=== PATIENT | male | born 1960 | race Caucasian/White ===

== ENCOUNTER 2023-02-11 12:25 | Inpatient (IN) | payer SELFPAY ==
[~2023-02-11] VITALS: Ht 180.3 cm; Wt 127.3 kg
[~2023-02-11 12:25] MED LIST: ALBU8.5H17 INH; PRED50TA PO
[2023-02-11 12:59] LABS: BASOPHILS % (AUTO) 0.5 % (0-1); LYMPHOCYTES # (AUTO) 0.7 X10'3 (1.1-4.8); MONOCYTES # (AUTO) 0.6 X10'3 (0-0.9)
[2023-02-11 13:00] LABS: EOSINOPHILS # (AUTO) 0.1 X10'3 (0-0.9); EOSINOPHILS % (AUTO) 1.5 % (0-6); HEMATOCRIT 46.4 % (42.0-52.0); LYMPHOCYTES % (AUTO) 9.7 % (21-51); MEAN CORPUSCULAR HEMOGLOBIN 29.9 PG (27.0-31.0); MEAN CORPUSCULAR HGB CONC 32.3 g/dL (33.0-36.5); MEAN CORPUSCULAR VOLUME 92.4 FL (78-98); MEAN PLATELET VOLUME 10.9 FL (7.4-10.4); MONOCYTES % (AUTO) 8.8 % (2-12); NEUTROPHILS # (AUTO) 5.8 X10'3 (1.8-7.7); NEUTROPHILS % (AUTO) 79.5 % (42-75); PLATELET COUNT 170 X10'3 (140-440); RED BLOOD COUNT 5.02 X10'6 (4.70-6.10); WHITE BLOOD COUNT 7.3 X10'3 (4.5-11.0)
[2023-02-11 13:07] LABS: ALANINE AMINOTRANSFERASE 31 U/L (12-78); ALBUMIN/GLOBULIN RATIO 0.7 (1.1-1.5); ALKALINE PHOSPHATASE 195 IU/L (46-116); ANION GAP 11 (8-16); ASPARTATE AMINO TRANSFERASE 14 U/L (10-37); BILIRUBIN,TOTAL 0.3 MG/DL (0.1-1.0); BLOOD UREA NITROGEN 23 MG/DL (7-18); BUN/CREATININE RATIO 15.3 (10.0-20.0); CALCIUM 8.9 MG/DL (8.5-10.1); CHLORIDE 89 MMOL/L (99-107); POTASSIUM 4.2 MMOL/L (3.5-5.1); SODIUM 124 MMOL/L (135-145); TOTAL CARBON DIOXIDE 23.7 MMOL/L (24-32); TOTAL PROTEIN 7.1 G/DL (6.4-8.2); eGFR 48 ML/MIN
[2023-02-11 13:23] LABS: GLUCOSE 1053 MG/DL (70-104)
--- NOTE | 2023-02-11 13:25 | NUR ---
PT BG IS 1053. RN NOTIFIED JASON MALDONADO AND SOPHIA GAINES.
[2023-02-11] MEDS ORDERED: normal saline 1000ML IV soln IVB ONE (13:30)
[2023-02-11] MEDS ORDERED: Insulin Reg/NS 100units/100mL 100 ML IV PRN (13:30)
[2023-02-11] MEDS ORDERED: insulin regular, human 10 units/0.1 ml syringe IV ONE (13:30)
[2023-02-11] MEDS ORDERED: insulin regular, human U-100 3ml vial - multi-dose IV ONE (13:30)
[2023-02-11 13:33] LABS: CLARITY,URINE CLEAR (Clear); COLOR,URINE YELLOW (Yellow); GLUCOSE, URINE >=1000 mg/dl (Neg); KETONES,URINE TRACE mg/dl (Neg); LEUKOCYTE ESTERASE ,URINE NEGATIVE (Neg); NITRITES, URINE NEGATIVE (Neg); OCCULT BLOOD,URINE NEGATIVE (Neg); PH,URINE 5.5 (4.8-8.0); PROTEIN,URINE NEGATIVE (Neg); UROBILINOGEN,URINE 0.2 E.U/dL (0.2-1.0)
[2023-02-11 13:37] LABS: UA COLLECTION TYPE CLN CATCH MIDSTREAM
[2023-02-11 13:38] LABS: BACTERIA,URINE NONE SEEN /HPF (Neg); MUCUS STRANDS NONE SEEN /LPF (Neg); RBC,URINE 0 /HPF (0-2); SQUAMOUS EPITHELIAL CELL,UR FEW /LPF (FEW); WBC,URINE 0-4 /HPF (0-4)
[2023-02-11 15:03] LABS: ALBUMIN 2.6 G/DL (3.4-5.0); ANION GAP 11 (8-16); BLOOD UREA NITROGEN 21 MG/DL (7-18); BUN/CREATININE RATIO 16.5 (10.0-20.0); CALCIUM 8.7 MG/DL (8.5-10.1); CHLORIDE 98 MMOL/L (99-107); CREATININE 1.27 MG/DL (0.60-1.10); POTASSIUM 3.8 MMOL/L (3.5-5.1); SODIUM 133 MMOL/L (135-145); TOTAL CARBON DIOXIDE 23.7 MMOL/L (24-32); eGFR 58 ML/MIN
[2023-02-11 15:13] LABS: GLUCOSE 561 MG/DL (70-104)
[2023-02-11] MEDS ORDERED: potassium Cl 40MEQ/1/2NS 520ml 520 ML IV PRN (15:50)
[2023-02-11] MEDS ORDERED: potassium Cl 20 mEq SR tablet PO PRN (15:50)
[2023-02-11] MEDS ORDERED: mag hydrox/Alum hydrox/simeth 30ml oral suspension PO PRN (15:50)
[2023-02-11] MEDS ORDERED: magnesium 4gm in 100ml NS 100 ML IV PRN (15:50)
[2023-02-11] MEDS ORDERED: magnesium hydroxide 30ml (MOM) UD suspension PO PRN (15:50)
[2023-02-11] MEDS: potassium Cl 20mEq in NS 1,000 ML IV SCH (15:50)
[2023-02-11] MEDS ORDERED: acetaminophen 325mg tablet PO PRN (15:50)
[2023-02-11] MEDS ORDERED: ondansetron/PF 4mg/2ml inj IV PRN (15:50)
[2023-02-11] MEDS ORDERED: insulin regular, human U-100 3ml vial - multi-dose IV PRN (15:55)
--- NOTE | 2023-02-11 16:42 | NUR ---
Late entry: Per Dr. Silveira, decrease the insulin drip to 3 units/hr
[2023-02-11] MEDS: heparin, porcine 5000 units/ml vial SQ SCH (18:29)
[2023-02-11 19:00] VITALS: BP 135/83; PULSE 71; RESP 18; TEMP 97.6; O2SAT 98
[2023-02-11 20:00] VITALS: RESP 16
[2023-02-11] MEDS: docusate sod 100mg capsule PO SCH (20:00)
[2023-02-11] MEDS: K and/or MAG REPLACEMENT MC SCH (20:00)
[2023-02-11] MEDS ORDERED: insulin Lispro (HumaLOG) vial - multi-dose SQ ONE (21:06)
[2023-02-11 22:00] VITALS: BP 130/77; PULSE 64; RESP 18; TEMP 97.6; O2SAT 98
[2023-02-11] MEDS: insulin Lispro (HumaLOG) vial - multi-dose SQ PRN ×2 (22:08→23:08)
[2023-02-11 23:28] LABS: ALBUMIN 2.7 G/DL (3.4-5.0); ANION GAP 8 (8-16); BLOOD UREA NITROGEN 14 MG/DL (7-18); BUN/CREATININE RATIO 12.8 (10.0-20.0); CALCIUM 8.8 MG/DL (8.5-10.1); CHLORIDE 103 MMOL/L (99-107); CREATININE 1.09 MG/DL (0.60-1.10); GLUCOSE 261 MG/DL (70-104); MAGNESIUM 2.1 MG/DL (1.5-2.4); POTASSIUM 3.6 MMOL/L (3.5-5.1); SODIUM 137 MMOL/L (135-145); TOTAL CARBON DIOXIDE 26.5 MMOL/L (24-32); eGFR 69 ML/MIN
[2023-02-12] MEDS: heparin, porcine 5000 units/ml vial SQ SCH ×3 (01:50→17:57)
[2023-02-12 02:00] VITALS: BP 121/68; PULSE 64; RESP 18; TEMP 97.3; O2SAT 97
[2023-02-12 02:01] LABS: BASOPHILS % (AUTO) 0.7 % (0-1); EOSINOPHILS # (AUTO) 0.3 X10'3 (0-0.9); EOSINOPHILS % (AUTO) 3.4 % (0-6); HEMATOCRIT 41.8 % (42.0-52.0); HEMOGLOBIN 13.9 g/dl (14.0-17.9); LYMPHOCYTES # (AUTO) 1.7 X10'3 (1.1-4.8); LYMPHOCYTES % (AUTO) 22.2 % (21-51); MEAN CORPUSCULAR HEMOGLOBIN 29.7 PG (27.0-31.0); MEAN CORPUSCULAR HGB CONC 33.2 g/dL (33.0-36.5); MEAN CORPUSCULAR VOLUME 89.5 FL (78-98); MEAN PLATELET VOLUME 9.7 FL (7.4-10.4); MONOCYTES # (AUTO) 0.8 X10'3 (0-0.9); MONOCYTES % (AUTO) 10.9 % (2-12); NEUTROPHILS # (AUTO) 4.8 X10'3 (1.8-7.7); NEUTROPHILS % (AUTO) 62.8 % (42-75); PLATELET COUNT 168 X10'3 (140-440); RED BLOOD COUNT 4.66 X10'6 (4.70-6.10); RED CELL DISTRIBUTION WIDTH 14.4 % (11.5-14.5); WHITE BLOOD COUNT 7.6 X10'3 (4.5-11.0)
[2023-02-12 02:07] LABS: ALBUMIN 2.4 G/DL (3.4-5.0); ANION GAP 9 (8-16); BLOOD UREA NITROGEN 14 MG/DL (7-18); BUN/CREATININE RATIO 15.1 (10.0-20.0); CALCIUM 8.3 MG/DL (8.5-10.1); CHLORIDE 105 MMOL/L (99-107); CREATININE 0.93 MG/DL (0.60-1.10); GLUCOSE 84 MG/DL (70-104); MAGNESIUM 2.1 MG/DL (1.5-2.4); POTASSIUM 3.1 MMOL/L (3.5-5.1); SODIUM 141 MMOL/L (135-145); TOTAL CARBON DIOXIDE 27.1 MMOL/L (24-32); eGFR 83 ML/MIN
[2023-02-12] MEDS ORDERED: dextrose 50%-water 50ml dispensing syringe IV ONE (02:11)
[2023-02-12] MEDS: potassium Cl 20mEq in NS 1,000 ML IV SCH (02:19)
[2023-02-12 06:00] VITALS: BP 163/99; PULSE 60; RESP 20; TEMP 97.6; O2SAT 97
[2023-02-12] MEDS: potassium Cl 20 mEq SR tablet PO PRN ×3 (06:47→18:50)
[2023-02-12] MEDS: K and/or MAG REPLACEMENT MC SCH ×2 (07:17→20:00)
[2023-02-12 08:25] VITALS: BP 156/86
[2023-02-12] MEDS: docusate sod 100mg capsule PO SCH (08:53)
[2023-02-12 09:01] LABS: ALBUMIN 2.4 G/DL (3.4-5.0); ANION GAP 6 (8-16); BLOOD UREA NITROGEN 11 MG/DL (7-18); BUN/CREATININE RATIO 12.4 (10.0-20.0); CALCIUM 7.3 MG/DL (8.5-10.1); CHLORIDE 109 MMOL/L (99-107); CREATININE 0.89 MG/DL (0.60-1.10); GLUCOSE 90 MG/DL (70-104); SODIUM 142 MMOL/L (135-145); TOTAL CARBON DIOXIDE 26.7 MMOL/L (24-32); eGFR 87 ML/MIN
--- NOTE | 2023-02-12 09:20 | NUR ---
PAGER ID: [phone] MESSAGE: [phone] Shad Leo Complaint of pain with urination, severe. ? He is labor breathing after urinating. We have tylenol for him. BG/Insulin drip continues, no diet orders. potassium replaced per protocol
[2023-02-12] MEDS ORDERED: morphine 2 MG/ML inj. syringe IV PRN (09:50)
[2023-02-12] MEDS ORDERED: HYDROcodone/acetaminophen 5mg/325mg tablet PO PRN (09:50)
[2023-02-12 11:00] VITALS: BP 179/91; PULSE 73; RESP 13; TEMP 98; O2SAT 98
[2023-02-12] MEDS ORDERED: dextrose 50%-water 50ml dispensing syringe IV PRN ×2 (11:05)
[2023-02-12] MEDS ORDERED: MESSAGE TO PHARMACY PO ONE (11:05)
[2023-02-12] MEDS ORDERED: glucagon, human recombinant 1mg kit SUBCUT PRN (11:05)
[2023-02-12] MEDS ORDERED: DEXTROSE 15 GM of carb/4 tabs (each vial/BOTTLE has 4 tablets) PO PRN ×2 (11:05)
[2023-02-12 11:23] LABS: HEMOGLOBIN A1C > 12.0 % (4.5-6.2)
[2023-02-12] MEDS: cephalexin 250mg capsule PO SCH ×2 (12:37→15:08)
[2023-02-12] MEDS: lisinopril 10 MG tablet PO SCH (12:38)
[2023-02-12] MEDS: potassium cl 20mEq in 1/2 NS 1,000 ML IV SCH (13:01)
[2023-02-12] MEDS: insulin Lispro (HumaLOG) vial - multi-dose SQ PRN (13:48)
--- NOTE | 2023-02-12 13:49 | NUR ---
DM Consult "New onset DM": Pt admit DX HHNS new onset DM A1C >12.0% Glu 1053mg/dl on admit, acute renal failure and hyponatremia secondary to dehydration, and HTN per EMR. Initially NPO advanced to carb controlled diet today first meal WL today PO pending in EMR. LBM 02/11 per EMR. Pt would benefit from DM diet ed prior to discharge this admit. Will continue to follow. Rec: 1. continue carb controlled diet per MD; encourage PO 2. monitor for additional protein/ONS needs for satiety given large stature 3. routine bowel care 4. weekly wt 5. DM diet ed this admit prior to discharge; A1C >12.0% new DX DM per DO Addendum: 02/12/23 at [address] Amended: Links added.
[2023-02-12 14:03] LABS: ALBUMIN 2.7 G/DL (3.4-5.0); ANION GAP 10 (8-16); BLOOD UREA NITROGEN 11 MG/DL (7-18); BUN/CREATININE RATIO 10.8 (10.0-20.0); CALCIUM 8.7 MG/DL (8.5-10.1); CHLORIDE 105 MMOL/L (99-107); CREATININE 1.02 MG/DL (0.60-1.10); GLUCOSE 147 MG/DL (70-104); POTASSIUM 3.8 MMOL/L (3.5-5.1); SODIUM 139 MMOL/L (135-145); TOTAL CARBON DIOXIDE 23.9 MMOL/L (24-32); eGFR 74 ML/MIN
--- NOTE | 2023-02-12 16:05 | NUR ---
Blood Glucose is between 100-150 for five hours on approximately 2units per hours insulin drip. Drip is off at 1600 with AC HS acu-check orders and SQ insulin coverage orders.
[2023-02-12] MEDS: insulin Lispro (HumaLOG) vial - multi-dose SQ SCH (18:58)
[2023-02-12 19:00] VITALS: BP 168/95; PULSE 71; RESP 22; TEMP 98.4; O2SAT 94
[2023-02-12] MEDS ORDERED: BENA40TA90 PO (19:13)
[2023-02-12] MEDS ORDERED: AMLO5TAB16 PO (19:13)
[2023-02-12] MEDS ORDERED: HYDR25TA5 PO (19:13)
[2023-02-12] MEDS ORDERED: ALBU2.5V13 NEB (19:14)
[2023-02-12] MEDS: doxycycline inj 100 MG in normal saline 100ml IV soln 100 ML IV SCH (19:31)
[2023-02-12] MEDS ORDERED: insulin glargine (Lantus) pen - multi-dose SQ SCH (21:00)
[2023-02-12] MEDS ORDERED: insulin glargine (Lantus) pen - multi-dose SQ ONE (21:36)
[2023-02-12 22:00] VITALS: BP 160/85; PULSE 75; RESP 20; TEMP 98.2; O2SAT 95
[2023-02-13] VITALS (7 sets, daily range): BP systolic 147–200; BP diastolic 80–110; PULSE 69–86; RESP 18–20; TEMP 97.6–98.3; O2SAT 96–98
[2023-02-13] MEDS: heparin, porcine 5000 units/ml vial SQ SCH ×2 (00:19→08:01)
[2023-02-13] MEDS: potassium cl 20mEq in 1/2 NS 1,000 ML IV SCH (02:36)
[2023-02-13] MEDS: doxycycline inj 100 MG in normal saline 100ml IV soln 100 ML IV SCH (05:54)
--- NOTE | 2023-02-13 06:30 | NUR ---
Problems reprioritized. Patient report given, questions answered & plan of care reviewed with ANTONIO. Addendum: 02/13/23 at 0631 by Yeyo Salmeron RN Amended: Links added.
--- NOTE | 2023-02-13 06:40 | NUR ---
Patient in room PCU 3025. I have received report from EDER ALVAREZ, and had the opportunity to ask questions and assume patient care.
[2023-02-13 07:26] LABS: BASOPHILS % (AUTO) 0.6 % (0-1); EOSINOPHILS # (AUTO) 0.2 X10'3 (0-0.9); EOSINOPHILS % (AUTO) 2.8 % (0-6); HEMATOCRIT 43.6 % (42.0-52.0); HEMOGLOBIN 14.5 g/dl (14.0-17.9); LYMPHOCYTES # (AUTO) 1.4 X10'3 (1.1-4.8); LYMPHOCYTES % (AUTO) 21.7 % (21-51); MEAN CORPUSCULAR HEMOGLOBIN 29.8 PG (27.0-31.0); MEAN CORPUSCULAR HGB CONC 33.3 g/dL (33.0-36.5); MEAN CORPUSCULAR VOLUME 89.7 FL (78-98); MEAN PLATELET VOLUME 10.4 FL (7.4-10.4); MONOCYTES # (AUTO) 0.5 X10'3 (0-0.9); MONOCYTES % (AUTO) 8.1 % (2-12); NEUTROPHILS # (AUTO) 4.5 X10'3 (1.8-7.7); NEUTROPHILS % (AUTO) 66.8 % (42-75); PLATELET COUNT 179 X10'3 (140-440); RED BLOOD COUNT 4.86 X10'6 (4.70-6.10); RED CELL DISTRIBUTION WIDTH 14.9 % (11.5-14.5); WHITE BLOOD COUNT 6.7 X10'3 (4.5-11.0)
[2023-02-13] MEDS ORDERED: pantoprazole 40mg Tablet.DR PO SCH (07:30)
[2023-02-13 07:54] LABS: ALANINE AMINOTRANSFERASE 35 U/L (12-78); ALBUMIN 2.5 G/DL (3.4-5.0); ALBUMIN/GLOBULIN RATIO 0.7 (1.1-1.5); ALKALINE PHOSPHATASE 117 IU/L (46-116); ANION GAP 10 (8-16); ASPARTATE AMINO TRANSFERASE 25 U/L (10-37); BILIRUBIN,TOTAL 0.4 MG/DL (0.1-1.0); BLOOD UREA NITROGEN 8 MG/DL (7-18); BUN/CREATININE RATIO 8.9 (10.0-20.0); CHLORIDE 102 MMOL/L (99-107); GLUCOSE 232 MG/DL (70-104); MAGNESIUM 1.9 MG/DL (1.5-2.4); POTASSIUM 3.8 MMOL/L (3.5-5.1); SODIUM 135 MMOL/L (135-145); TOTAL CARBON DIOXIDE 23.1 MMOL/L (24-32); TOTAL PROTEIN 6.2 G/DL (6.4-8.2); eGFR 86 ML/MIN
[2023-02-13] MEDS: lisinopril 10 MG tablet PO SCH (08:00)
[2023-02-13] MEDS: K and/or MAG REPLACEMENT MC SCH (08:00)
--- NOTE | 2023-02-13 08:46 | NUR ---
Diabetes consult: Pt presents with an A1C >12.0% and BG of 1053mg/dl on admit per EMR. Pt seen at bedside for written/verbal diabetes nutrition education in kosovan since it's the pt's preferred language. Pt reports starting to feel better and plans on implementing dietary changes once discharged. Provided pt with kyrgyz and kosovan diabetes education handout with RD contact information. Encouraged pt to contact the RD's office for any additional nutrition questions or concerns. Will continue to monitor. Addendum: 02/13/23 at [address] Amended: Links added.
[2023-02-13] MEDS: insulin Lispro (HumaLOG) vial - multi-dose SQ SCH ×2 (08:57→13:20)
--- NOTE | 2023-02-13 09:35 | NUR ---
EDUCATION CONCERNING DM CONTINUED WITH DISCUSSION OF CARBS AND BLOOD SURGARS. PT ASKED TO NOTIFY THIS NURSE AFTER HE URINATES FOR A POST VOID BLADDER SCAN. Addendum: 02/13/23 at 0937 by Debbie Cortes RN PER DR. PANDEY
[2023-02-13] MEDS ORDERED: LANTUS SQ (11:42)
--- NOTE | 2023-02-13 12:44 | NUR ---
Diabetes consult: A1c has already been addressed and pt has been seen for diabetes nutrition education; see prior RD note. Addendum: 02/13/23 at [address] Amended: Links added.
--- NOTE | 2023-02-13 12:50 | NUR ---
POST VOID BLADDER SCAN SHOWED 2-4 ML.
--- NOTE | 2023-02-13 13:00 | NUR ---
PAGE SENT PAGER ID: [phone] MESSAGE: [id number], MADHAV CAMPOS, BP 196/94, HR 78, PERHAPS HYDRALAZINE? THANK YOU, ANTONIO Sethi 0640
--- NOTE | 2023-02-13 14:26 | NUR ---
PAGE SENT PAGER ID: [phone] MESSAGE: [id number], MADHAV CAMPOS, PT HAS ELEVATED BP 200/110. NO PRN. BROTHER IS HERE TO P/U. THANK YOU. ANTONIO Sethi [phone]
[2023-02-13] MEDS ORDERED: hydrALAZINE 20mg/ml inj. IV ONE (14:35)
--- NOTE | 2023-02-13 16:44 | NUR ---
PT STABLE FOR D/C PER MD. DISCHARGE AND FOLLOW UP INSTRUCTIONS REVIEWED WITH PT. APPROPRIATE PAPERWORK SIGNED. BELONGINGS GATHERED AND RETURNED TO PT. PT'S MEDICATIONS FAXED TO [facility] [address]. PIVs REMOVED WITH TIP INTACT. PT WHEELED TO PRIVATE VEHICLE BY HOSPITAL STAFF. PT DISCHARGED TO HOME.
[2023-02-13] MEDS ORDERED: tamsulosin 0.4mg capsule PO SCH (21:00)
== END 2023-02-13 15:55 | disposition home or self-care (01) | DRG 638 ==
LOC: ER 12:26 → ED HOLD 15:52 → PCU 3S 19:00
PROVIDERS: ADMIT Family Medicine; ATTEND Internal Medicine
DX: E11.00 Type 2 diabetes mellitus with hyperosmolarity without nonketotic hyperglycemic-hyperosmolar coma (NKHHC) (principal); E46 Unspecified protein-calorie malnutrition; E87.1 Hypo-osmolality and hyponatremia; N17.9 Acute kidney failure, unspecified; I10 Essential (primary) hypertension; E86.0 Dehydration; J44.9 Chronic obstructive pulmonary disease, unspecified; E66.01 Morbid (severe) obesity due to excess calories; R63.1 Polydipsia; R35.0 Frequency of micturition; Z79.4 Long term (current) use of insulin; Z79.899 Other long term (current) drug therapy; Z86.73 Personal history of transient ischemic attack (TIA), and cerebral infarction without residual deficits; Z87.891 Personal history of nicotine dependence; Z68.39 Body mass index [BMI] 39.0-39.9, adult; Z91.148 Patient's other noncompliance with medication regimen for other reason
CPT/HCPCS: 36415; 76857; 80048; 80053; 81001; 82009; 82948; 83036; 83735; 83880; 84484; 85025; 87081; 93005; 97116; 97161; 97530; 99285; A4615; G0378; J0360; J1644; J1815; J3480; J3490; J7030